=== PATIENT | male | born 1960 | race Two or more races ===

== ENCOUNTER 2019-04-25 10:17 | Emergency (ER) | payer MEDICAID ==
[~2019-04-25] VITALS: Ht 177.8 cm; Wt 135.6 kg
[2019-04-25 10:22] VITALS: Ht 177.8 cm; Wt 135.6 kg
[2019-04-25 12:05] LABS: BASOPHIL % 0.5 % (0-2); PLATELET COUNT 207 x10^3mcL (130-400); RED CELL DISTRIBUTION WIDTH 14.4 % (11.5-14.5)
[2019-04-25 12:20] LABS: CALCIUM 8.9 mg/dL (8.5-10.1); CHLORIDE SERUM 108 mmol/L (98-107); CREATININE SERUM 0.9 mg/dL (0.7-1.3); GFR1 > 60 mL/min; GLUCOSE SERUM 132 mg/dL (74-106); POTASSIUM SERUM 4.8 mmol/L (3.5-5.1); SODIUM SERUM 142 mmol/L (136-145)
[2019-04-25 12:25] LABS: ALBUMIN 3.7 g/dL (3.4-5.0); ALKALINE PHOSPHATASE 72 U/L (46-116); ALT/SGPT 29 U/L (16-63); AST/SGOT 13 U/L (15-37); BILIRUBIN TOTAL 0.35 mg/dL (0.20-1.00); TOTAL PROTEIN, SERUM 7.3 g/dL (6.4-8.2)
[2019-04-25 16:30] VITALS: BP 129/79
== END 2019-04-25 16:30 | disposition home or self-care (01) ==
LOC: ED 10:17
PROVIDERS: Emergency Medicine
DX: J39.1 Other abscess of pharynx (principal); I10 Essential (primary) hypertension
CPT/HCPCS: J0696; J1100; J3010; J7030; Q9967

== ENCOUNTER 2019-05-15 22:21 | Emergency (ER) | payer MEDICAID ==
[~2019-05-15] VITALS: Ht 177.8 cm; Wt 132.0 kg
[2019-05-15 22:41] VITALS: Ht 177.8 cm; Wt 132.0 kg
[2019-05-16 01:19] VITALS: BP 165/86
== END 2019-05-16 01:38 | disposition home or self-care (01) ==
LOC: ED 22:21
DX: M54.9 Dorsalgia, unspecified (principal); R10.9 Unspecified abdominal pain; I10 Essential (primary) hypertension
CPT/HCPCS: J1885